=== PATIENT | male | born 1985 | race Caucasian/White ===

== ENCOUNTER 2022-11-01 17:09 | Emergency (ER) | payer BC, OTHER, SELFPAY ==
[2022-11-01 17:25] VITALS: TEMP 97
[2022-11-01] MEDS ORDERED: Adacel Vial IM ONE ×2 (18:11→18:12)
--- NOTE | 2022-11-01 18:11 | ERPHSYRPT ---
- History of Present Illness Time Seen by Provider: 11/01/22 17:30 Source: patient Exam Limitations: no limitations Patient Subjective Stated Complaint: PT states "I dropped a piece of machinery on my hand." Triage Nursing Assessment: PT presented alert and oriented X 3, skin pwd. Pt has lacertaion noted to second digit of left hand. bleeding controlled. 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 The finger involves the left index finger he does have movement and sensation but he has some evidence of a crush injury. Occurred: just prior to arrival Method of Injury: direct blow Quality: aching Severity of Pain-Max: mild Severity of Pain-Current: mild Extremities Pain Location: 2nd finger: left Modifying Factors: Improves With: nothing, movement Associated Symptoms: none Allergies/Adverse Reactions: No Known Drug Allergies Allergy (Verified 11/01/22 17:25) Home Medications: No Reportable Medications [No Reported Medications] 11/01/22 [History] Hx Tetanus, Diphtheria Vaccination/Date Given: No Hx Influenza Vaccination/Date Given: No Hx Pneumococcal Vaccination/Date Given: No Immunizations Up to Date: No Travel Risk - International Travel Have you traveled outside of the country in past 3 weeks: No - Coronavirus Screening Are you exhibiting any of the following symptoms?: No Close contact with a COVID-19 positive Pt in past 14-21 Days: No - Vaccine Status Have you recieved a Covid-19 vaccination: No - Review of Systems Constitutional: No Fever, No Chills Eyes: No Symptoms Ears, Nose, & Throat: No Symptoms Respiratory: No Cough, No Dyspnea Cardiac: No Chest Pain, No Edema, No Syncope Abdominal/Gastrointestinal: No Abdominal Pain, No Nausea, No Vomiting, No Diarrhea Genitourinary Symptoms: No Dysuria Musculoskeletal: Joint Pain, No Back Pain, No Neck Pain Skin: No Rash Neurological: No Dizziness, No Focal Weakness, No Sensory Changes Psychological: No Symptoms Endocrine: No Symptoms All Other Systems: Reviewed and Negative - Past Medical History Pertinent Past Medical History: No - Past Surgical History Past Surgical History: Yes - Social History Smoking Status: Current every day smoker How long have you smoked: years Exposure to second hand smoke: Yes Drug Use: none Patient Lives Alone: No - Nursing Vital Signs Nursing Vital Signs: Initial Vital Signs Temperature 97.0 F 11/01/22 17:19 Pulse Rate 93 H 11/01/22 17:19 Respiratory Rate 28 H 11/01/22 17:19 Blood Pressure 166/97 11/01/22 17:19 O2 Sat by Pulse Oximetry 93 L 11/01/22 17:19 Pain Scale Pain Intensity 5 - Physical Exam General Appearance: alert Eyes, Ears, Nose, Throat Exam: moist mucous membranes Neck Exam: non-tender, supple Cardiovascular/Respiratory Exam: chest non-tender, normal breath sounds, regular rate/rhythm, no respiratory distress Abdominal Exam: non-tender, No guarding Back Exam: normal inspection, No vertebral tenderness Shoulder Exam: normal inspection, non-tender, no evidence of injury Elbow/Forearm Exam: normal inspection, non-tender, no evidence of injury Wrist Exam: normal inspection, non-tender, no evidence of injury Hand Exam: soft tissue tenderness (StoolThe left index finger has abrasions to both sides phalanx there is full range of motion sensation is intact vascular is intact), stiffness Neuro/Tendon Exam: normal sensation, normal motor functions Mental Status Exam: alert, oriented x 3, cooperative Skin Exam: normal color, warm, dry SpO2 Interpretation: normal SpO2: 93 O2 Delivery: Room Air Procedures - Splinting Time of Procedure: 18:08 Location of Splint: Left Type of Splint: Foam Pad Finger Splint Splint Applied By: ED Nurse Pre-Proc Neuro Vasc Exam: normal Post-Proc Neuro Vasc Exam: neurovascular intact - Course Nursing assessment & vital signs reviewed: Yes - Radiology Exams Left Hand X-ray Interpretation: Interpreted by me, Negative Ordered Tests: Active Orders 24 hr Category Date Time Status HAND (MINIMUM 3 VIEWS) Stat Exams 11/01/22 17:20 Taken - Progress Progress: improved Medical Desision Making - Independent Historian Additional History obtained from: Spouse - Diagnostic Testing Radiological Interpretation: Interpreted by me - Risk of complications Low Risk: Low risk of morbidity from additional dx testing or treatment - Departure Departure Disposition: Home Clinical Impression: Abrasion of left index finger Condition: Stable Critical Care Time: No Instructions: Finger Sprain (DC)
--- NOTE | 2022-11-01 18:16 | XRAY ---
Indication: Pain following injury Comparison: None 3 view left hand demonstrates old 5th metacarpal fracture. No other bony, articular, or soft tissue abnormalities.
[2022-11-01 18:29] VITALS: BP 162/93; PULSE 87; RESP 18; O2SAT 97
== END 2022-11-01 18:36 | disposition home or self-care (01) ==
LOC: ED 17:09
DX: S60.411A Abrasion of left index finger, initial encounter (principal); W31.9XXA Contact with unspecified machinery, initial encounter; Y92.79 Other farm location as the place of occurrence of the external cause; Z28.310 Unvaccinated for COVID-19; Z72.0 Tobacco use; Z23 Encounter for immunization
CPT/HCPCS: 73130; 90471; 90715; 99283

== ENCOUNTER 2024-12-13 14:55 | Emergency (ER) | payer BC ==
[2024-12-13 15:11] VITALS: TEMP 97.1; O2SAT 97
--- NOTE | 2024-12-13 15:15 | ERPHSYRPT ---
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 now has pain with deep breath Triage Nursing Assessment: pt alert, walked in, resp easy, skin w/d/p. chest clear, no cough, tender to palpate Timing/Duration: today Severity: mild Associated Symptoms: denies symptoms Allergies/Adverse Reactions: No Known Drug Allergies Allergy (Verified 12/13/24 14:56) Home Medications: lisinopriL [Lisinopril] 30 mg PO DAILY 12/13/24 [History] Hx Tetanus, Diphtheria Vaccination/Date Given: No Hx Influenza Vaccination/Date Given: No Hx Pneumococcal Vaccination/Date Given: No Immunizations Up to Date: Yes Travel Risk - International Travel Have you traveled outside of the country in past 3 weeks: No - Emerging Infectious Disease Are you exhibiting symptoms associated with any current EIDs: No - Review of Systems Constitutional: No Symptoms Eyes: No Symptoms Ears, Nose, & Throat: No Symptoms Respiratory: No Symptoms Cardiac: No Symptoms Abdominal/Gastrointestinal: No Symptoms Genitourinary Symptoms: No Symptoms Musculoskeletal: No Symptoms Skin: No Symptoms Neurological: No Symptoms Psychological: No Symptoms Endocrine: No Symptoms Hematologic/Lymphatic: No Symptoms Immunological/Allergic: No Symptoms All Other Systems: Reviewed and Negative - Past Medical History Pertinent Past Medical History: Yes Cardiac History: Hypertension - Past Surgical History Past Surgical History: Yes - Social History Smoking Status: Current every day smoker How long have you smoked: years Exposure to second hand smoke: Yes Drug Use: none - Social Determinants of Health Will the patient participate in the screening: Declined to provide - Nursing Vital Signs Nursing Vital Signs: Initial Vital Signs Blood Pressure 115/77 12/13/24 15:00 Pain Scale Pain Intensity 4 - Physical Exam General Appearance: no apparent distress Eye Exam: PERRL/EOMI Ears, Nose, Throat Exam: normal ENT inspection Respiratory Exam: chest tenderness, other (patient has right lateral chest wall tenderness with palpation - under the nipple line ) Cardiovascular Exam: regular rate/rhythm Gastrointestinal/Abdomen Exam: soft, normal bowel sounds SpO2: 97 Ordered Tests: Active Orders 24 hr Category Date Time Status CHEST WITHOUT CONTRAST [CT] Stat Exams 12/13/24 15:10 Completed Medication Summary Discontinued Medications Generic Name Dose Route Start Last Admin Trade Name Freq PRN Reason Stop Dose Admin Ketorolac Tromethamine 60 mg 12/13/24 15:12 12/13/24 15:32 Ketorolac Tromethamine 30 Mg/Ml Inj IM 12/13/24 15:13 60 mg STAT ONE Administration Ketorolac Tromethamine Confirm 12/13/24 15:28 Ketorolac Tromethamine 30 Mg/Ml Inj Administered 12/13/24 15:29 Dose 60 mg .ROUTE .STK-MED ONE - Progress Progress Note: patient was seen and evaluated for this complaints and informed of the need for ct of the chest for evaluation of his chest wall pain - this reveals no acute findings - patient will be discharged home with muscle relaxers he was informed of the need to follow-up with his doctor and apply ice to the affected area 12/13/24 15:14 12/13/24 17:09 Medical Desision Making - Discussion of managment Agreed on:: need for follow-up Will see patient: In office - Departure Departure Disposition: Home Clinical Impression: Right-sided chest wall pain Condition: Stable Critical Care Time: No Referrals: EDD OWEN [Primary Care Provider, [facility]] - Follow up/PCP as directed Prescriptions: Methocarbamol [Robaxin] 500 mg PO BID PRN PRN #15 tablet PRN Reason: Chest Pain
[2024-12-13] MEDS ORDERED: TORAdol 30 mg Injection ONE (15:28)
[2024-12-13] MEDS: TORAdol 30 mg Injection IM ONE (15:32)
--- NOTE | 2024-12-13 16:41 | XRAY ---
Indication: Right chest wall pain. Multiple contiguous axial images obtained of the chest without contrast. Comparison: None Lungs inflated and clear. Heart not enlarged. Aorta is normal in course and caliber. Incidental tiny mediastinal left hilar calcified nodes. No pathologic mediastinal lymphadenopathy. Bony thorax intact. No focal solid/cystic chest wall mass. Limited upper abdomen including adrenal glands are unremarkable. Impression: Normal CT chest without contrast exam. Incidental old granulomatous disease.
[2024-12-13 17:37] VITALS: BP 132/70; PULSE 78; RESP 14
== END 2024-12-13 17:50 | disposition home or self-care (01) ==
LOC: ED 14:55
DX: R07.89 Other chest pain (principal); I10 Essential (primary) hypertension; Z79.899 Other long term (current) drug therapy; Z72.0 Tobacco use